=== PATIENT | female | born 1990 | race Caucasian/White ===

== ENCOUNTER 2019-07-12 17:35 | Emergency (ER) | payer OTHER ==
[~2019-07-12] VITALS: Ht 170.2 cm; Wt 93.0 kg
[2019-07-12] MEDS ORDERED: FORTAMET1000 MG (18:19)
[2019-07-12] MEDS ORDERED: PRINIVIL10 MG (18:20)
[2019-07-12] MEDS ORDERED: PEPCID20 MG (18:20)
[2019-07-12] MEDS ORDERED: LIPITOR20 MG (18:20)
== END 2019-07-12 22:20 | disposition home or self-care (01) ==
LOC: ER 17:35
DX: N93.8 Other specified abnormal uterine and vaginal bleeding (principal)